=== PATIENT | female | born 1990 | race Caucasian/White ===

== ENCOUNTER → 2016-10-09 | Outpatient (CLI) | payer OTHER ==
[2016-10-09 17:33] LABS: HEMATOCRIT 42.1 % (37.0-47.0); HEMOGLOBIN 14.2 g/dL (12.0-16.0); MEAN CORPUSCULAR HEMOGLOBIN 29.4 PG (27-31); MEAN CORPUSCULAR HGB CONC 33.7 g/dL (33-37); MEAN CORPUSCULAR VOLUME 87.2 FL (81-99); MEAN PLATELET VOLUME 9.7 FL (7.4-12.2); RED BLOOD COUNT 4.83 10^6/uL (4.20-5.40)
[2016-10-09 18:04] LABS: BLOOD UREA NITROGEN 17 mg/dL (7-22); BUN/CREATININE RATIO 21.25 (6-20); CALCIUM 9.5 mg/dL (8.7-10.7); EST GLOMERULAR FILTRATION > 60 (>60 ml/min/1.73m(2)); SERUM ALBUMIN 4.2 g/dL (3.5-4.8)
[2016-10-09 18:37] LABS: FREE T4 (FREE THYROXINE) 1.16 ng/dL (0.93-1.71)
== END ==
LOC: MOB LAB 12:43
PROVIDERS: ATTEND Nurse Practitioner Family
DX: R00.2 Palpitations (principal); R63.5 Abnormal weight gain; R06.02 Shortness of breath; R53.82 Chronic fatigue, unspecified; R42 Dizziness and giddiness
CPT/HCPCS: 36415; 80053; 82306; 83735; 84439; 84443; 85027; 86376; 86800

== ENCOUNTER → 2016-10-12 | Outpatient (CLI) | payer OTHER ==
--- NOTE | 2016-10-20 15:01 | HOLTER ---
[facility] Interpretive Statements [email or web address]
== END ==
LOC: EKG 17:01
PROVIDERS: ATTEND Nurse Practitioner Family
DX: R55 Syncope and collapse (principal); R06.02 Shortness of breath
CPT/HCPCS: 93225; 93226; 93227

== ENCOUNTER → 2016-11-06 | Outpatient (CLI) | payer OTHER ==
[2016-11-06 09:25] LABS: BASOPHILS # (AUTO) 0.09 10*3/UL; BASOPHILS % (AUTO) 1.3 % (0-1); EOSINOPHILS # (AUTO) 0.11 10*3/UL; EOSINOPHILS % (AUTO) 1.6 % (0-8); HEMATOCRIT 43.8 % (37.0-47.0); HEMOGLOBIN 14.5 g/dL (12.0-16.0); LYMPHOCYTES # (AUTO) 1.86 10*3/uL; MEAN CORPUSCULAR HEMOGLOBIN 28.7 PG (27-31); MEAN CORPUSCULAR HGB CONC 33.1 g/dL (33-37); MEAN CORPUSCULAR VOLUME 86.6 FL (81-99); MEAN PLATELET VOLUME 9.1 FL (7.4-12.2); MONOCYTES # (AUTO) 0.68 10*3/UL (0.3-0.8); MONOCYTES % (AUTO) 9.8 % (5-15); NEUTROPHILS % (AUTO) 60.4 % (50-80); RED BLOOD COUNT 5.06 10^6/uL (4.20-5.40)
[2016-11-06 09:48] LABS: PLATELET MORPHOLOGY COMMENT NORMAL MORPHOLOGY (NORM); RBC MORPHOLOGY COMMENT NORMAL MORPHOLOGY (NORM); WBC MORPHOLOGY COMMENT NORMAL MORPHOLOGY (NORM)
== END ==
LOC: LAB 09:10
PROVIDERS: ATTEND Nurse Practitioner Family
DX: R10.84 Generalized abdominal pain (principal)
CPT/HCPCS: 36415; 85025

== ENCOUNTER 2017-02-09 09:54 | Day surgery (SDC) | payer OTHER ==
[~2017-02-09 09:54] MED LIST: LIDOCAINE 2%/ EPI 1:200,000 - 20 ML VIAL ONE; LIDOCAINE W/ SODIUM BICARB 0.5 ML SYR ONE; Lactated Ringers 1,000 ML PRIMARY IV ONE; MEPIVACAINE HCL/PF 20 MG/1 ML IV ONE; ceFAZolin Inj 2gm (Premix) 50 ML IV ONE
[2017-02-09 10:20] LABS: URINE SPECIFIC GRAVITY - MAN 1.024
[2017-02-09] MEDS ORDERED: MIDAZOLAM 5 MG/1 ML ONE (10:30)
[2017-02-09] MEDS ORDERED: LIDOCAINE 2%/ EPI 1:200,000 - 20 ML VIAL ONE (10:30)
[2017-02-09] MEDS ORDERED: fentaNYL Inj 100 MCG/2 ML VIAL ONE (10:31)
[2017-02-09] MEDS ORDERED: MEPIVACAINE HCL/PF 20 MG/1 ML IV ONE (10:33)
--- NOTE | 2017-02-09 10:52 | CRNA.PROCE ---
Nerve Block Documentation - - Safety Measures: Time Out Taken, Site Verified - - Type of Nerve Block Used: Left Axillary Block Position for Nerve Block: Supine Moniters Used During Block: EKG, SPO2, NIBP Oxygen Sumpplented: Yes Sedation Used - Enter Amount in Comment Field: Midazolam (mg): Yes (3mg iv), Fentanyl (mcg): Yes (100mcg iv) Skin Prep Used: ChloroPrep Technique: Other (transarterial tech. Neg increase in heart rate or BP. No signs of vascular uptake) Local Anesthetic - Enter Amt in Comment Field: 2 % Xylocaine with Epinephrine 1: 200,000 (mL): Yes (20ml), 2 % Mepivacaine (mL): Yes (20ml)
[2017-02-09] MEDS ORDERED: Ondansetron ODT Tab 8 MG TAB PO PRN (11:54)
[2017-02-09] MEDS ORDERED: CALCIUM CARBONATE 500 MG (TUMS) CHEWABLE TABLET PO PRN (11:54)
[2017-02-09] MEDS ORDERED: ACETAMINOPHEN 325 MG TABLET PO PRN (11:54)
[2017-02-09] MEDS ORDERED: HYDROcodone-APAP 7.5 MG-325 MG TABLET PO PRN (11:54)
[2017-02-09] MEDS ORDERED: BISACODYL 10 MG SUPPOSITORY RECTAL PRN (11:54)
[2017-02-09] MEDS ORDERED: MORPHINE SULFATE 2 MG/1 ML IVP PRN (11:54)
[2017-02-09] MEDS ORDERED: MAG HYDROX/AL HYDROX/SIMETH 30 ML SUSP PO PRN (11:54)
[2017-02-09] MEDS ORDERED: NORMAL SALINE 10 ML SYRINGE FLUSH IVP PRN (11:54)
[2017-02-09] MEDS ORDERED: BISACODYL 5 MG TABLET PO PRN (11:54)
[2017-02-09] MEDS ORDERED: IBUPROFEN 400 MG TABLET PO PRN (11:54)
[2017-02-09] MEDS ORDERED: ONDANSETRON 4 MG/2 ML VIAL IVP PRN (11:54)
[2017-02-09] MEDS ORDERED: diphenhydrAMINE 25 MG CAPSULE PO PRN (11:54)
[2017-02-09] MEDS ORDERED: Prochlorperazine Tab 10 MG TAB PO PRN (11:54)
[2017-02-09] MEDS ORDERED: Lactated Ringers 1,000 ML PRIMARY IV SCH (12:00)
[2017-02-09] MEDS ORDERED: KETOROLAC 30 MG/1 ML VIAL ONE (12:01)
[2017-02-09 13:56] VITALS: RESP 16
[2017-02-09 14:03] VITALS: TEMP 97
== END 2017-02-09 13:07 | disposition home or self-care (01) ==
LOC: SDSC 09:54
PROVIDERS: ATTEND Orthopaedic Surgery
DX: G56.02 Carpal tunnel syndrome, left upper limb (principal)
CPT/HCPCS: 64721; 84703; J0670; J0690; J1885; J2250; J2704; J3010; J7120